=== PATIENT | male | born 1980 | race Caucasian/White ===

== ENCOUNTER 2019-01-23 20:53 | Outpatient (CLI) | payer BC | END 2019-01-24 06:06 | disposition home or self-care (01) | LOC: SLEEP 20:53 | PROVIDERS: ATTEND Nurse Practitioner | DX: G47.33 Obstructive sleep apnea (adult) (pediatric) (principal); E66.9 Obesity, unspecified; R51 Headache; R53.83 Other fatigue | CPT/HCPCS: 95811 ==

== ENCOUNTER 2019-03-13 05:28 | Outpatient (CLI) | payer BC ==
[~2019-03-13] VITALS: Ht 180 cm; Wt 150.0 kg
[2019-03-13] MEDS ORDERED: PANT40TA2 PO (10:15)
[2019-03-15] MEDS ORDERED: ACHD5005 PO (10:03)
== END 2019-03-13 10:27 | disposition home or self-care (01) ==
LOC: PREOP 05:28
PROVIDERS: ATTEND Surgery
DX: Z01.818 Encounter for other preprocedural examination (principal)